=== PATIENT | female | born 1995 | race Caucasian/White ===

== ENCOUNTER 2016-12-18 11:49 | Emergency (ER) | payer OTHER ==
[~2016-12-18] VITALS: Ht 162.6 cm; Wt 54.6 kg
[2016-12-18 12:08] VITALS: Ht 162.6 cm; Wt 54.6 kg
--- NOTE | 2016-12-18 12:32 | EMERGENCY ROOM VISIT NOTE ---
History Report prepared by Lj: Rnonie Parra Under the Supervision of: Dr. Anjum Humphreys M.D. First contact with patient: 12:12 Chief Complaint: OTHER COMPLAINT Stated Complaint: PAIN IN TONGUE,BURNING,SALIVARY GLAND SWELLING History of Present Illness The patient is a 21 year old female who presents to the Emergency Room with complaints of tongue pain that began 1 week ago. She rates her pain an 8/10 in severity. At this time, she noticed that her tongue began to feel "weird." She describes this sensation as "eating a lot of pineapple which made her tongue raw." She then began to experience burning and discomfort to the inside of her mouth as well. She has some mild relief by sucking on ice and drinking cold liquids, but notes that this has never happened to her before. She also states that her tongue feels swollen, there are bumps around her tongue, and her mouth is really dry. She denies any cough, sore throat, fever, or shortness of breath. She notes that she has been vegan for three years and recently saw her dentist for this tongue issue. They suggested starting a multivitamin for a potential deficiency. She denies any cold sore history. She is not on control and denies any chance of being . Source of History: patient Onset: 1 week ago Position: tongue Symptom Intensity: 8/10 Quality: burning Timing: constant Modifying Factors (Relieving): ice Associated Symptoms: No fevers, No sorethroat, No cough, No SOB Note: She notes some bumps and swelling to her tongue. Review of Systems See HPI for pertinent positives & negatives. A total of 10 systems reviewed and were otherwise negative. Past Medical & Surgical Medical Problems: (1) No Known Active Medical Problems Family History Kidney stones Seizures Social History Smoking Status: Never Smoker Smokeless Tobacco Use: No Drug Use: none Marital Status: single Occupation Status: student Current/Historical Medications Scheduled Cephalexin Monohydrate (Keflex), 500 MG PO TID Cyanocobalamin (Vitamin B-12), 1,000 MCG SL DAILY Valacyclovir (Valtrex), 500 MG PO TID Allergies Coded Allergies: No Known Allergies (Unverified , 12/18/16) Physical Exam Vital Signs Date Time Temp Pulse Resp B/P (MAP) Pulse Ox O2 Delivery O2 Flow Rate FiO2 12/18/16 15:44 37.9 115 18 115/78 99 12/18/16 14:10 37.9 110 20 96/60 100 Room Air 12/18/16 12:08 37.0 126 20 121/76 99 Room Air Physical Exam GENERAL: Patient is in no acute distress. Anxious. HEENT: No acute trauma, normocephalic atraumatic, mucous membranes moist, no nasal congestion, no scleral icterus. Tiny vesicles to the underside of the tongue. There is evidence for a ruptured vesicular lesion to the right buccal mucosal. Mild throat erythema without exudate. NECK: No stridor, mild cervical adenopathy, no meningismus, trachea is midline. LUNGS: Clear to auscultation bilaterally, no wheeze, no rhonchi, breath sounds equal. HEART: Without murmurs gallops or rubs, regular rate and rhythm. ABDOMEN: Soft, nontender, bowel sounds positive, no hernias, no peritonitis. EXTREMITIES: No cyanosis or edema, full range of motion of all the joints without pain or difficulty, no signs for acute trauma. NEUROLOGIC: Oriented x 3, no acute motor or sensory deficits, no focal weakness. SKIN: No rash, no jaundice, no diaphoresis. Medical Decision & Procedures Laboratory Results 12/18/16 12:43 12/18/16 12:43 Test 12/18/16 12:43 12/18/16 13:43 Red Blood Count 4.58 M/uL (4.2-5.4) Mean Corpuscular Volume 95.0 fL (80-100) Mean Corpuscular Hemoglobin 33.4 pg (25-34) Mean Corpuscular Hemoglobin Concent 35.2 g/dl (32-36) RDW Standard Deviation 41.7 fL (36.4-46.3) RDW Coefficient of Variation 12.0 % (11.5-14.5) Mean Platelet Volume 10.5 fL (7.4-10.4) Anion Gap 7.0 mmol/L (3-11) Est Creatinine Clear Calc Drug Dose 86.9 ml/min Estimated GFR () 108.1 Estimated GFR (Non- 93.3 BUN/Creatinine Ratio 9.4 (10-20) Calcium Level 9.7 mg/dl (8.5-10.1) Magnesium Level 2.1 mg/dl (1.8-2.4) Total Bilirubin 0.7 mg/dl (0.2-1) Aspartate Amino Transf (AST/SGOT) 28 U/L (15-37) Alanine Aminotransferase (ALT/SGPT) 25 U/L (12-78) Alkaline Phosphatase 171 U/L (45-117) C-Reactive Protein 0.30 mg/dl (0-0.29) Total Protein 8.8 gm/dl (6.4-8.2) Albumin 4.5 gm/dl (3.4-5.0) Globulin 4.3 gm/dl (2.5-4.0) Albumin/Globulin Ratio 1.0 (0.9-2) Vitamin B12 Level > 2000 pg/mL (211-911) Folate 17.67 ng/mL (>5.38) Thyroid Stimulating Hormone (TSH) 1.080 uIu/ml (0.300-4.500) Human Chorionic Gonadotropin, Qual NEG (NEG) Erythrocyte Sedimentation Rate 20 mm/hr (0-21) Laboratory results reviewed by me. Medications Administered Medications (Trade) Dose Ordered Sig/Vinod Route Start Time Stop Time Status Last Admin Dose Admin Valacyclovir HCl (Valtrex Tab) 500 mg NOW STAT PO 12/18/16 12:24 12/18/16 12:29 DC 12/18/16 12:40 500 MG Acetaminophen (Tylenol Tab) 1,000 mg NOW STAT PO 12/18/16 14:30 12/18/16 14:31 DC 12/18/16 14:57 1,000 MG Cephalexin Monohydrate (Keflex Cap) 500 mg NOW STAT PO 12/18/16 14:40 12/18/16 14:42 DC 12/18/16 14:57 500 MG Ibuprofen (Motrin Tab) 600 mg NOW STAT PO 12/18/16 14:42 12/18/16 14:43 DC 12/18/16 14:58 600 MG Cephalexin Monohydrate (Keflex 500MG Home Pack) 1 homepack NOW ONCE PO 12/18/16 15:30 12/18/16 15:31 DC 12/18/16 15:35 1 HOMEPACK Valacyclovir HCl (Valtrex Tab) 1,000 mg NOW STAT PO 12/18/16 15:23 12/18/16 15:25 DC 12/18/16 15:35 1,000 MG ED Course 1212: The patient was evaluated in room A10. A complete history and physical exam was performed. 1224: Ordered Valtrex Tab 500 mg PO 1430: Ordered Tylenol Tab 1000 mg PO 1440: Ordered Keflex Cap 500 mg PO 1442: Ordered Motrin Tab 600 mg PO 1530: Ordered Cephalexin Monohydrate 1 homepack PO 1533: Reevaluated the patient. Discussed results and discharge instructions: She verbalized understanding and agreement. The patient is ready for discharge. Medical Decision Differential diagnosis includes but is not limited to herpes infection, viral illness, salivary infection, electrolyte imbalance, and anemia. There is a mild leukocytosis, this could be consistent with infection or just her pain and stress. No concerning anemia. No significant electrolyte abnormality, kidney failure or hepatitis. The patient appears to be in a euthyroid state. testing was negative. Sedimentation rate was normal. C-reactive protein very mildly elevated. On exam, the patient did seem to have some tiny vesicles on the underside of her tongue. There appeared to be a broken vesicle along the right cheek mucosa. I suspect the patient has a viral illness, there may even be a superimposed bacterial infection present. She does not have pharyngitis. She does not have meningismus. She did become slightly febrile during her stay in the ER. The patient was given oral Valtrex and oral Keflex. She was given oral Motrin and oral Tylenol. She has been drinking liquid during her ER stay. I had a long discussion with the patient's parents and the patient. They were very anxious for discharge towards the end of the stay. At this point, I do think a trial of antivirals and Keflex is warranted. If things are escalating or not improving, the patient should return back for reassessment and repeat testing. They understand. Outpatient follow-up was suggested. A copy of her laboratory testing was provided in case she sees a physician in her home state of [place]. Medication Reconcilliation Current Medication List: was personally reviewed by me Blood Pressure Screening Patient's blood pressure: Normal blood pressure Blood pressure disposition: Did not require urgent referral Impression Primary Impression: Soreness of tongue Additional Impression: Fever Scribe Attestation The scribe's documentation has been prepared under my direction and personally reviewed by me in its entirety. I confirm that the note above accurately reflects all work, treatment, procedures, and medical decision making performed by me. Departure Information Dispostion Home / Self-Care Prescriptions Valacyclovir (Valtrex) 500 Mg Tab 500 MG PO TID for 10 Days, #30 TAB Prov: Anjum Humphreys M.D. 12/18/16 Cephalexin Monohydrate (Keflex) 500 Mg Cap 500 MG PO TID for 10 Days, #30 CAP Prov: Anjum Humphreys M.D. 12/18/16 Referrals No Doctor, Assigned (PCP) Forms HOME CARE DOCUMENTATION FORM, IMPORTANT VISIT INFORMATION, WORK / SCHOOL INSTRUCTIONS Patient Instructions My [facility] Additional Instructions fluids rest motrin/tylenol for fever and aches valtrex 3x per day for 10 days keflex 3x per day for 10 days return for worsening symptoms recheck with s this week lab work was ok as discussed Problem Qualifiers Additional Impression: Fever Fever type: unspecified Qualified Codes: R50.9 - Fever, unspecified
[2016-12-18] MEDS ORDERED: CYAN100048 SL (12:53)
[2016-12-18 13:29] LABS: HEMATOCRIT 43.5 % (37-47); MEAN CORPUSCULAR HEMOGLOBIN 33.4 pg (25-34); MEAN CORPUSCULAR HGB CONC 35.2 g/dl (32-36); MEAN PLATELET VOLUME 10.5 fL (7.4-10.4); PLATELET COUNT 252 K/uL (130-400); RED BLOOD COUNT 4.58 M/uL (4.2-5.4); WHITE BLOOD COUNT 12.69 K/uL (4.8-10.8)
[2016-12-18 13:46] LABS: CALCIUM 9.7 mg/dl (8.5-10.1); MAGNESIUM 2.1 mg/dl (1.8-2.4); POTASSIUM 3.8 mmol/L (3.5-5.1)
[2016-12-18 13:47] LABS: BUN/CREATININE RATIO 9.4 (10-20); CREATININE 0.89 mg/dl (0.60-1.20)
[2016-12-18 13:50] LABS: PREG INTERNAL NEGATIVE QC NEG CLEAR BACKGROUND; PREG INTERNAL POSITIVE QC POS CONTROL LINE
[2016-12-18 13:58] LABS: C-REACTIVE PROTEIN 0.3 mg/dl (0-0.29); THYROID STIMULATING HORMONE 1.08 uIu/ml (0.300-4.500)
[2016-12-18] MEDS ORDERED: KETOROLAC TROMETHAMINE 30 MG/ML VIAL IV STA (14:30)
[2016-12-18] MEDS ORDERED: ACETAMINOPHEN 500 MG TAB PO STA (14:30)
[2016-12-18] MEDS ORDERED: SODIUM CHLORIDE 0.9% 1000ML 1,000 ML IV STA (14:30)
[2016-12-18] MEDS ORDERED: CEPHALEXIN MONOHYDRATE 250 MG CAP PO STA (14:40)
[2016-12-18] MEDS ORDERED: IBUPROFEN 600 MG TAB PO STA (14:42)
[2016-12-18] MEDS ORDERED: PENICILLIN V POTASSIUM 250 MG TAB PO ONE (14:45)
[2016-12-18] MEDS ORDERED: CEPH500C PO (15:22)
[2016-12-18] MEDS ORDERED: VALA500T60 PO (15:23)
[2016-12-18] MEDS ORDERED: EMPTY 8 DRAM VIAL ONE (15:29)
[2016-12-18] MEDS ORDERED: CEPHALEXIN 500MG HOME PACK 1 EA BTL PO ONE (15:30)
[2016-12-18 15:44] VITALS: BP 115/78; PULSE 115; TEMP 37.9; O2SAT 99
== END 2016-12-18 15:40 | disposition home or self-care (01) ==
LOC: C.EDB 11:52 → C.EDA 15:40
DX: K14.6 Glossodynia (principal); R50.9 Fever, unspecified; Z82.0 Family history of epilepsy and other diseases of the nervous system; Z84.1 Family history of disorders of kidney and ureter